=== PATIENT | female | born 1980 | race Caucasian/White ===

== ENCOUNTER → 2018-09-21 | Outpatient (CLI) | payer OTHER, MEDICAID ==
--- NOTE | 2018-09-21 11:13 | RADIOLOGY REPORT (SQ) ---
EXAM DESCRIPTION: C SP 4 OR 5 VIEWS COMPLETED DATE/TIME: 09/21/2018 10:17 am REASON FOR STUDY: M54.2 CERVICALGIA, M54.41 CHRONIC MIDLINE LOW BACK PAIN M54.2 CERVICALGIA M54.41 LUMBAGO WITH SCIATICA, RIGHT SIDE COMPARISON: None. NUMBER OF VIEWS: Five views. TECHNIQUE: AP, lateral, obliques and odontoid radiographic images acquired of the cervical spine. LIMITATIONS: None. FINDINGS: MINERALIZATION: Normal. ALIGNMENT: Anatomic. VERTEBRAE: Vertebral bodies of normal height. DISCS: No significant osteophytes or sclerosis. Disc height maintained. FORAMINA: No osteophytes or foraminal narrowing. LATERAL AND POSTERIOR ELEMENTS: Facets, lateral masses and spinous processes without significant find ings. HARDWARE: None in the spine. SOFT TISSUES: No masses or calcifications. Lung apices clear. OTHER: No other significant finding. IMPRESSION: 1. NO SIGNIFICANT RADIOGRAPHIC FINDING IN THE CERVICAL SPINE. TECHNICAL DOCUMENTATION: JOB ID: [id number] [employer]- All Rights Reserved Reading location - IP/workstation name: [email or web address]
--- NOTE | 2018-09-21 11:19 | RADIOLOGY REPORT (SQ) ---
EXAM DESCRIPTION: LUMBAR SPINE COMPLETE COMPLETED DATE/TIME: 09/21/2018 10:17 am REASON FOR STUDY: M54.2 CERVICALGIA, M54.41 CHRONIC MIDLINE LOW BACK PAIN M54.2 CERVICALGIA M54.41 LUMBAGO WITH SCIATICA, RIGHT SIDE COMPARISON: None. NUMBER OF VIEWS: Five views including obliques. TECHNIQUE: AP, lateral, oblique, and sacral radiographic images acquired of the lumbar spine. LIMITATIONS: None. FINDINGS: MINERALIZATION: Normal. SEGMENTATION: Normal. No transitional anatomy. ALIGNMENT: Minimal to very slight scoliosis at the thoracolumbar junction. VERTEBRAE: Moderate compression deformity involving the T12 vertebra, age is indeterminate. No evid ence of retropulsion into the spinal canal. DISCS: Preserved height. No significant osteophytes or end plate irregularity. POSTERIOR ELEMENTS: Pedicles and facets are intact. No pars defect or posterior arch defects. HARDWARE: None in the spine. PARASPINAL SOFT TISSUES: Normal. PELVIS: Intact as visualized. No fractures or worrisome bone lesions. SI joints intact. OTHER: No other significant finding. IMPRESSION: 1. Moderate compression deformity involving the T12 vertebra, age is indeterminate. Co rrelation suggested. 2.NORMAL 5 VIEW LUMBAR SPINE. COMMENT: 1. The results of this examination were discussed with the patient's provider's office on 09/21/2017 at 11:12 hours. TECHNICAL DOCUMENTATION: JOB ID: [id number] [employer]- All Rights Reserved Reading location - IP/workstation name: [email or web address]
== END ==
LOC: OD 09:51
PROVIDERS: ATTEND Nurse Practitioner Family
DX: M54.2 Cervicalgia (principal); M54.41 Lumbago with sciatica, right side
CPT/HCPCS: 72050; 72110

== ENCOUNTER → 2018-10-24 | Outpatient (CLI) | payer MEDICAID ==
--- NOTE | 2018-10-24 15:57 | RADIOLOGY REPORT (SQ) ---
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 LIMITATIONS: None. FINDINGS: LOCALIZER: No worrisome findings. ALIGNMENT: Normal. VERTEBRAE and BONE MARROW: 50% anterior compression of the T12 vertebral body. On the STIR and T2 we ighted images there is minimal marrow edema paralleling the upper endplate. This is likely a subacut e osteoporotic compression deformity. There is mild retropulsion of the posterosuperior corner of T1 2 with less than 30% narrowing of the central spinal canal, best shown on axial image 24. No other marrow signal abnormalities or thoracic vertebral body compressions. HARDWARE: None in the spine. CORD: Normal in size and signal intensity. SOFT TISSUES: No soft tissue masses. THORACIC DISCS T1-T12: No significant spinal stenosis or exit foraminal stenosis. LOWER CERVICAL: Incompletely imaged. No significant spinal stenosis or exit foraminal stenosis. UPPER LUMBAR: Incompletely imaged. No significant spinal stenosis or exit foraminal stenosis. OTHER: No other significant finding. IMPRESSION: Subacute 50% anterior compression deformity of the T12 vertebral body with mild retropul federico of the posterosuperior corner of T12. No significant central canal stenosis TECHNICAL DOCUMENTATION: JOB ID: [id number]- All Rights Reserved Reading location - IP/workstation name: [email or web address]
== END ==
LOC: RAD 13:23
PROVIDERS: ATTEND Nurse Practitioner Family
DX: M43.9 Deforming dorsopathy, unspecified (principal)
CPT/HCPCS: 72146

== ENCOUNTER → 2019-04-22 | Outpatient (CLI) | payer MEDICAID ==
[2019-04-22 16:04] LABS: HEMATOCRIT 37.9 % (36.0-47.0); HEMOGLOBIN 12.9 g/dL (12.0-15.5); MEAN CORPUSCULAR HEMOGLOBIN 29.6 pg (27.0-33.4); MEAN CORPUSCULAR HGB CONC 34.2 g/dL (32.0-36.0); MEAN CORPUSCULAR VOLUME 87 fl (80-97); PLATELET COUNT 311 10^3/uL (150-450); RED BLOOD COUNT 4.37 10^6/uL (3.72-5.28); RED CELL DISTRIBUTION WIDTH 13.5 % (11.5-14.0); WHITE BLOOD COUNT 12.8 10^3/uL (4.0-10.5)
[2019-04-22 16:20] LABS: ANION GAP 15 (5-19); BLOOD UREA NITROGEN 19 mg/dL (7-20); CALCIUM 10.3 mg/dL (8.4-10.2); CARBON DIOXIDE 27 mmol/L (22-30); CHLORIDE 105 mmol/L (98-107); GLUCOSE 152 mg/dL (75-110); POTASSIUM 4.2 mmol/L (3.6-5.0)
[2019-04-22 16:37] LABS: ALBUMIN 5.1 g/dL (3.5-5.0); ALKALINE PHOSPHATASE 88 U/L (38-126); ASPARTATE AMINO TRANSFERASE 19 U/L (14-36); BILIRUBIN,DIRECT 0.2 mg/dL (0.0-0.4); BILIRUBIN,TOTAL 0.3 mg/dL (0.2-1.3); BLOOD UREA NITROGEN 19 mg/dL (7-20); CALCIUM 10.3 mg/dL (8.4-10.2); POTASSIUM 4.2 mmol/L (3.6-5.0)
[2019-04-22 16:45] LABS: CHLORIDE 105 mmol/L (98-107); GLUCOSE 152 mg/dL (75-110)
[2019-04-22 16:46] LABS: ABSOLUTE MONOCYTES # (MANUAL) 0.8 10^3/uL (0.1-1.4); ANION GAP 15 (5-19); BASOPHILS % (MANUAL) 0 % (0-2); CARBON DIOXIDE 27 mmol/L (22-30); EOSINOPHILS % (MANUAL) 0 % (0-6); LYMPHOCYTES % (MANUAL) 31 % (13-45); MONOCYTES % (MANUAL) 6 % (3-13); SEGMENTED NEUTROPHILS % (MAN) 63 % (42-78); TOTAL CELLS COUNTED 100
[2019-04-22 16:47] LABS: PLATELET COMMENT ADEQUATE; PLATELET LARGE PRESENT; RBC MORPHOLOGY COMMENT NORMO-CYTIC/CHROMIC
== END ==
LOC: OD 15:02
PROVIDERS: ATTEND Physician Assistant
DX: I10 Essential (primary) hypertension (principal); F31.63 Bipolar disorder, current episode mixed, severe, without psychotic features; Z79.899 Other long term (current) drug therapy
CPT/HCPCS: 36415; 80053; 80164; 83036; 85025

== ENCOUNTER → 2019-05-28 | Outpatient (CLI) | payer MEDICAID ==
--- NOTE | 2019-05-28 17:38 | DRAGON STRESS TEST REPORT ---
EXERCISE myocardial perfusion imaging Procedure performed: Rest/stress single isotope Cardiolite SPECT imaging using Treadmill Exercise and Gated SPECT Imaging. Indication: Assess chest pains Clinical history: This is a 38 years old female weighing 168 pounds height 63 inches complaining of chest pains with cardiac risk factors including hypertension, smoking, family history of CAD, referred for IV Lexiscan study to assess chest pain. Report Patient performed treadmill exercise using a modified accelerated Yoandy protocol. She exercised for 7 minutes Peak heart rate reaching a 127 bpm. The test was stopped by patient due to inability to continue but there was no chest pains. She completed an estimated workload of 8 METS, H.rate attained was 69% of maximum age related heart rate. The resting EKG showed NSR, right axis deviation, ST elevations and poor R wave progression in V1 to V3. At peak exercise, no ST changes particularly in the inferior wall, to suggest myocardial ischemia. Myocardial perfusion imaging was performed at rest 60 minutes following the injection of 10.93 mCi of Cardiolite. Breast attenuation was noted, but attenuation correction software was not available on this camera. At peak exercise patient was injected with 31.0 mCi of Cardiolite and exercise continued for 1 more minute. Poststress tomographic imaging was performed 20 minutes after stress. Findings Overall quality of the study is fair, this is due to Breast attenuation, with no attenuation correction software available. The left ventricular cavity is noted to be normal in size on both the rest and stress studies. The TID ratio was 1.17. SPECT images showed NO reversible ischemia, but there was a moderate sized area of mild fixed perfusion defect in the anteroseptal wall with reduced motion contraction in the anteroseptal wall on gated SPECT imaging. The left ventricular ejection fraction was calculated at 52%. Impression Myocardial perfusion imaging is abnormal. There is a moderate area of mild fixed perfusion defect in the basal anteroseptal wall with reduced motion and contraction. The sensitivity and specificity of this test is impaired due to uncorrected breast attenuation and inadequate heart rate response to exercise (69%). Overall left ventricular systolic function was low normal at 52% with regional wall motion abnormality in the basal anteroseptal wall. No Prior study for comparison.. Recommendation: Optimal medical management, if uncontrollable chest pains, consider left heart catheterization MTDD
== END ==
LOC: RAD 06:57
PROVIDERS: ATTEND Internal Medicine Cardiovascular Disease
DX: R07.9 Chest pain, unspecified (principal); I10 Essential (primary) hypertension; Z77.22 Contact with and (suspected) exposure to environmental tobacco smoke (acute) (chronic); Z82.49 Family history of ischemic heart disease and other diseases of the circulatory system
CPT/HCPCS: 93017; 78452; A9500; Q9969

== ENCOUNTER → 2020-01-07 | Outpatient (CLI) | payer MEDICAID ==
[2020-01-07 16:31] LABS: ABSOLUTE BASOPHILS # (AUTO) 0.1 10^3/uL (0.0-0.2); ABSOLUTE EOSINOPHILS # (AUTO) 0.2 10^3/uL (0.0-0.6); ABSOLUTE LYMPHOCYTES (AUTO) 3.1 10^3/uL (0.5-4.7); ABSOLUTE MONOCYTES (AUTO) 0.7 10^3/uL (0.1-1.4); ABSOLUTE NEUT (AUTO) 6.9 10^3/uL (1.7-8.2); BASOPHILS % (AUTO) 0.6 % (0-2); EOSINOPHILS % (AUTO) 1.5 % (0-6); HEMATOCRIT 42.9 % (36.0-47.0); HEMOGLOBIN 14.4 g/dL (12.0-15.5); LYMPHOCYTES % (AUTO) 28.2 % (13-45); MEAN CORPUSCULAR HEMOGLOBIN 29.1 pg (27.0-33.4); MEAN CORPUSCULAR HGB CONC 33.6 g/dL (32.0-36.0); MEAN CORPUSCULAR VOLUME 87 fl (80-97); MONOCYTES % (AUTO) 6.1 % (3-13); PLATELET COUNT 331 10^3/uL (150-450); RED BLOOD COUNT 4.95 10^6/uL (3.72-5.28); RED CELL DISTRIBUTION WIDTH 13.3 % (11.5-14.0); SEGMENTED NEUTROPHILS % (AUTO) 63.6 % (42-78); TOTAL CELLS COUNTED % (AUTO) 100 %; WHITE BLOOD COUNT 10.9 10^3/uL (4.0-10.5)
[2020-01-07 16:50] LABS: ALBUMIN 4.5 g/dL (3.5-5.0); ALKALINE PHOSPHATASE 93 U/L (38-126); ANION GAP 12 (5-19); ASPARTATE AMINO TRANSFERASE 18 U/L (14-36); BILIRUBIN,TOTAL 0.4 mg/dL (0.2-1.3); BLOOD UREA NITROGEN 10 mg/dL (7-20); CALCIUM 9.5 mg/dL (8.4-10.2); CARBON DIOXIDE 23 mmol/L (22-30); CHLORIDE 109 mmol/L (98-107); GLUCOSE 152 mg/dL (75-110); POTASSIUM 3.5 mmol/L (3.6-5.0); TOTAL PROTEIN 7.4 g/dL (6.3-8.2)
[2020-01-07 17:08] LABS: FREE T4 (FREE THYROXINE) 1.26 ng/dL (0.78-2.19)
[2020-01-07 17:22] LABS: THYROID STIMULATING HORMONE 0.34 uIU/mL (0.47-4.68)
== END ==
LOC: OD 15:46
PROVIDERS: ATTEND Nurse Practitioner Psychiatric/Mental Health
DX: F31.63 Bipolar disorder, current episode mixed, severe, without psychotic features (principal); F43.12 Post-traumatic stress disorder, chronic; Z79.899 Other long term (current) drug therapy
CPT/HCPCS: 36415; 80053; 80164; 84439; 84443; 85025